=== PATIENT | male | born 1945 | race Caucasian/White ===

== ENCOUNTER 2018-01-12 22:53 | Inpatient (IN) | payer OTHER ==
[~2018-01-12] VITALS: Ht 180.3 cm; Wt 86.2 kg
--- NOTE | ~2018-01-12 | HC ---
[facility] [place] [address] CONSULTATION Name: MEGHAN MILLS Room #: 208-P [facility] IN M.R.#: [id number] Admission: 01/13/18 Attend Phys: Chandu Ornelas MD Discharge: 01/13/18 Date of : 49 Report #: [id number] THIS REPORT FOR: //name// CC: Lizandro Ornelas DATE OF SERVICE: 01/13/2018 REASON FOR CONSULTATION: Chest pain. HISTORY OF PRESENT ILLNESS: The patient is a 72-year-old gentleman with a history of 4-vessel bypass in 2011. Over the past several months, he has had exertional chest pain and fatigue. This has become much more progressive limiting his activities. He had a similar episode of pain yesterday and presented to the emergency department where he was given three sublingual nitroglycerin tablets, aspirin and morphine and his pain resolved. He reports this pain is reminiscent to what he experienced prior to his bypass surgery. He denies heart failure symptoms including orthopnea, paroxysmal nocturnal dyspnea, or lower extremity edema. He does have a history of remote paroxysmal atrial fibrillation, although nothing recently. No history of near syncope or syncope. ALLERGIES: No known drug allergies. MEDICATIONS: Include atorvastatin 40 mg daily, tramadol, levothyroxine 0.075 mg daily, metoprolol succinate 50 mg daily, trazodone, and Wellbutrin 150 mg daily. PAST MEDICAL HISTORY: Medical records have been reviewed and include a history of herniorrhaphy, coronary artery bypass grafting, COPD, dyslipidemia, hypertension. SOCIAL HISTORY: He is an ongoing smoker. FAMILY HISTORY: Unremarkable for premature coronary disease. REVIEW OF SYSTEMS: All systems negative except as that noted above. PHYSICAL EXAMINATION: GENERAL: He is a pleasant gentleman, in no distress. VITAL SIGNS: Blood pressure is 117/75, heart rate is 62 and regular, he is afebrile. HEENT: There are neither xanthelasma, subcutaneous xanthomata, oral mucosal or digital cyanosis or kyphoscoliosis present. CHEST: Clear to auscultation and percussion. CARDIAC: Regular rate and rhythm with normal S1, S2. ABDOMEN: Soft and nontender. EXTREMITIES: Without cyanosis, clubbing, or edema. Radial pulses are 2+. [facility] [address] [place] [address] [facility] Room #: 208-P [facility] IN M.R.#: [id number] Admission: 01/13/18 Attend Phys: Chandu Ornelas MD Discharge: 01/13/18 Date of : 49 Report #: [id number] NEUROLOGIC: He is alert with a nonfocal exam. LABORATORY DATA: Sodium is 142, potassium 3.8, creatinine 1.2. Troponin 0.89. Cholesterol 109, LDL 60, HDL 32. White count 5.8, hemoglobin 12, hematocrit 36, platelet count 249. Chest x-ray is normal. EKG sinus rhythm with right bundle branch block. IMPRESSION: 1. Non-Q-wave myocardial infarction. 2. Coronary artery disease with remote 4-vessel bypass. 3. Hypertension. 4. Dyslipidemia. 5. Chronic obstructive pulmonary disease with blebs. RECOMMENDATIONS: 1. Coronary angiography. This procedure was discussed in detail including its associated risks as well as the risks associated with a possible percutaneous intervention. 2. Beta lucina, nitrates, antiplatelet and anticoagulants. 3. Smoking cessation encouraged. <ELECTRONICALLY SIGNED> By: Ray Gonzalez MD, [facility] 01/18/18 0734 0817 0943 Ray Gonzalez MD, [facility] /nt
--- NOTE | ~2018-01-12 | EKG ---
[address] [place] [address] ELECTROCARDIOGRAM REPORT Name: MEGHAN MILLS Room #: 208-P ADM IN M.R.#: [id number] Admission: 01/13/18 Attend Phys: Chandu Ornelas MD Discharge: Date of : 49 Report #: [id number] THIS REPORT FOR: //name// [facility] ED Test Date: 2018-01-12 Test Time: 23:01:12 Pat Name: MEGHAN MILLS Department: Room: Gender: M Distributing Clerk: Lisa BAER : 1945 Requested By: Nahomy Cruz Order Number: [id number] MD: Ronnie Morejon Measurements Intervals [place] Rate: 69 P: 51 KS: 202 QRS: 89 QRSD: 105 T: 46 QT: 398 QTc: 427 Interpretive Statements Sinus rhythm Borderline right axis deviation RSR' in V1 or V2, probably normal variant Borderline T abnormalities, anterior leads Compared to ECG 01/06/2018 00:14:36 RSR' in V1 or V2 now present T-wave abnormality now present First degree AV block no longer present Right bundle-branch block no longer present Electronically Signed On 01-13-2018 8:21:49 CDT by Ronnie Morejon [email or web address] <ELECTRONICALLY SIGNED> By: Ronnie Morejon MD 01/13/18820 00 00 Ronnie Morejon MD /EPI
--- NOTE | ~2018-01-12 | 2DMMODE ---
[facility] [address] [place] [address] 2 D/M-MODE ECHOCARDIOGRAM Name: MEGHAN MILLS Room #: 208-P ADM IN .R.#: [id number] Admission: 01/13/18 Attend Phys: Chandu Ornelas MD Discharge: Date of : 49 Date of Service: 01/13/18 1430 Report #: [id number] THIS REPORT FOR: //name// APPROVED REPORT Study performed: 01/13/2018 12:33:30 EXAM: Comprehensive 2D, Doppler, and color-flow Echocardiogram Patient Location: Bedside Room #: 208 Status: routine BSA: 2.06 HR: 62 bpm BP: 117/75 mmHg Other Information Study Quality: Adequate Indications CAD Chest Pain Hypertension/HDD CABG 2D Dimensions RVDd: 40.02 mm LVEF(%): 41.10 (>50%) IVSd: 8.03 (7-11mm) LVOT Diam: 26.62 (18-24mm) LVDd: 55.66 mm PWd: 8.68 (7-11mm) Ascending Ao: 36.13 (22-36mm) LVDs: 44.33 (25-40mm) Aortic Root: 37.41 mm IVC: 21.00 mm Ferguson's LVEF: 41.10 % Volumes Left Atrial Volume (Systole) Single Plane 4CH: 60.54 mL Single Plane 2CH: 75.51 mL LA ESV Index: 36.00 mL/m2 Aortic Valve AoV Peak Nitesh.: 0.84 m/s AO Peak Gr.: 2.82 mmHg LVOT Max P.33 mmHg LVOT Max V: 0.76 m/s JANELLE Vmax: 5.06 cm2 Mitral Valve [facility] [address] [place] [place] [address] 2 D/M-MODE ECHOCARDIOGRAM Name: [facility] Room #: 208-P [facility] IN .R.#: [id number] Admission: 01/13/18 Attend Phys: Chandu Ornelas MD Discharge: Date of : 49 Date of Service: 01/13/18 1430 Report #: [id number] E/A Ratio: 1.2 MV Decel. Time: 205.76 ms MV E Max Nitesh.: 0.69 m/s MV A Nitesh.: 0.58 m/s MV PHT: 59.67 ms IVRT: 101.50 ms Pulmonary Valve PV Peak Nitesh.: 0.70 m/s PV Peak Gr.: 1.94 mmHg Pulmonary Vein P Vein S: 0.30 m/s P Vein A: 0.14 m/s P Vein D: 0.30 m/s P Vein A Dur.: 115.3 msec P Vein S/D Ratio: 1.00 Tricuspid Valve TR Peak Nitesh.: 1.95 m/s TR Peak Gr.: 15.21 mmHg PA Pressure: 25.00 mmHg Left Ventricle The left ventricle is normal size. There is normal left ventricular wall thickness. Left ventricular systolic function is at the lower limits of normal. Mild hypokinesis of base to mid septum. LVEF 45%. The diastolic function is abnormal. Right Ventricle The right ventricle is normal size. The right ventricular systolic function is normal. Atria Left atrium is dilated. Right atrium is dilated. Aortic Valve Aortic valve is calcified. No aortic regurgitation is present. There is no aortic valvular stenosis. Mitral Valve The mitral valve is normal in structure. Mild mitral regurgitation. No evidence of mitral valve stenosis. Tricuspid Valve The tricuspid valve is normal in structure. There is mild tricuspid regurgitation. Estimated PAP 25 mmHg. There is no pulmonary hypertension. [address] [address] 2 D/M-MODE ECHOCARDIOGRAM Name: GENEMEGHAN Room #: 208-P [facility] IN ..#: [id number] Admission: 01/13/18 Attend Phys: Chandu Ornelas MD Discharge: Date of : 49 Date of Service: 01/13/18 1430 Report #: [id number] Pulmonic Valve The pulmonary valve is normal in structure. There is no pulmonic valvular regurgitation. Great Vessels The aortic root is normal in size. IVC is dilated and collapses >50% with inspiration. Pericardium There is no pericardial effusion. <Conclusion> Left ventricular systolic function is at the lower limits of normal. Hypokinesis of base to mid septum. LVEF 45-50%. Both atria are mildly dilated. Aortic valve is mildly calcified. No aortic regurgitation or stenosis The mitral valve is normal in structure. Mild mitral regurgitation. There is mild tricuspid regurgitation. Estimated pulmonary artery pressure of 25 mmHg. There is no pericardial effusion. <ELECTRONICALLY SIGNED> By: Ray Gonzalez MD, FACC 01/13/18 1430 1430 1430 Ray Gonzalez MD, FACC /INF
--- NOTE | ~2018-01-12 | CATHLAB ---
[facility] [address] [place] [place] [address] INVASIVE PROCEDURE REPORT Name: MEGHAN MILLS Room #: 208-P ADM IN [facility].#: [id number] Admission: 01/13/18 Attend Phys: Chandu Ornelas MD Discharge: Date of : 49 Date of Service: 01/13/18 1217 Report #: [id number] THIS REPORT FOR: //name// APPROVED REPORT Study performed: 01/13/2018 08:56:49 Patient Details Patient Status: In-Patient Room #: The patient is a 72 year-old male Event Personnel Ray Gonzalez Compass Operator, Tangela George RN RN, Chloe James RTR, Roe Brandt David Monitor, Hesham Damian Registered Nurse Bone Marrow Transplant Procedures Performed Left Heart Cath Coronaries, Bypass Grafts [id number] [facility] Ind[facility] Abnormal ECG, Non-STEMI Procedure Narrative The patient was brought urgently to the Cardiac Catheterization Laboratory and was prepped and draped in a sterile manner. The Right Groin^ then Lt groin was infiltrated with 1% Lidocaine subcutaneous anesthesia. A PINNACLE 6FR Sheath #[id number] sheath was inserted into the LFA^. Coronary angiography was performed using coronary diagnostic catheters. The right coronary system was accessed and visualized with a JR4 catheter. The left coronary system was accessed and visualized with a JL4 catheter. Closure device was deployed with a 6 Fr MYNXGRIP 6/7F #[id number]. There was no hematoma. Strong pulses were present bilaterally. The right iliac artery appeared to be occluded. Attention was turned to the left groin. All catheter exchanges were made over 260 cm exchange length wire. The aortic bifurcation was quite high. Access was technically difficult and required multiple catheter exchanges and wire manipulations. Intraoperative Conscious Sedation Sedation start time: 9.27 Case end Time: 10.32 Fentanyl 50 mcg Versed 2 mg Fluoro Time: 21.53 minutes [facility] [place] [address] INVASIVE PROCEDURE REPORT Name: MEGHAN MILLS Room #: 208-P ADM IN .R.#: [id number] Admission: 01/13/18 Attend Phys: Chandu Ornelas MD Discharge: Date of : 49 Date of Service: 01/13/18 1217 Report #: [id number] Dose: 1387 mGy Contrast Type and Amount: Omnipaque 240 ml Coronary Angiography The patient's coronary anatomy is right dominant. Diagnostic Cath Left Main Normal left main LAD The LAD was occluded at its origin Widely patent left internal mammary to the distal LAD. The distal anastomotic site was widely patent. The tanacross LAD was small in caliber but free of significant occlusive disease. The MONTERO filled in a retrograde fashion a high diagonal branch Diagonal 1 The diagonal branch bifurcated proximally. This is a small vessel (1.5 mm) Circumflex The circumflex was large but nondominant and comprised of 3 marginal branches OM1 Mild scattered plaquing OM2 Mild scattered plaquing OM3 30-40% ostial stenosis, mild distal plaquing Right Coronary The right coronary was dominant and occluded proximally. There were moderate right to right collaterals to the distal right coronary Widely patent saphenous vein graft to the distal right coronary, posterior descending. Both proximal and distal anastomotic sites were widely patent. There appeared to be jump sequence from the posterior descending to the posterior lateral branch The distal tanacross vasculature exhibited minimal plaquing. R PDA Moderate in size with minimal plaquing RPLV Moderate in size with minimal plaquing Hemodynamics The aortic pressure is 133/74 mmHg with a mean of 96 mmHg. Conclusion 1. Severe multivessel coronary disease with occlusion of the proximal LAD and proximal right coronary 2. Mild circumflex plaquing 3. Patent left internal mammary to the LAD 4. Patent sequential vein graft to the posterior descending with a jump sequence to the posterolateral branch 5. Occluded vein graft, probably to the diagonal branch Recommendations Smoking Cessation [address] [address] INVASIVE PROCEDURE REPORT Name: HARJINDERPOLINAMEGHAN Room #: 208-P [facility] IN M.R.#: [id number] Admission: 01/13/18 Attend Phys: Chandu Ornelas MD Discharge: Date of : 49 Date of Service: 01/13/18 1217 Report #: [id number] Cardiac Rehabilitation Referral Aggressive Medical Therapy <ELECTRONICALLY SIGNED> By: Ray Gonzalez MD, FACC 01/13/181216 16 16 Ray Gonzalez MD, FAC /INF
[~2018-01-12 22:53] MED LIST: AMBIEN 10 MG TA10 MG PO; ASPIRIN325 PO; ATORVASTATIN CA40 MG PO; CELEXA20 MG PO; FLEXERIL PO; GEMFIBROZIL 60600 MG PO; HYDROCODONE-AP1 EAC6 PO; LEVOTHYROXIN0.075 MG PO; LEXAPRO20 MG PO; LIDOCAINE35.44 GM TOP; LISINOPRIL5 MG PO; NITROGLYCERIN0.4 MG SUBLING; PLAVIX 75 MG TA75 M1 PO; PROAIR HFA8.5 GM INH; PROTONIX40 M1 PO; TEGRETOL200 MG PO; TOPROL XL50 MG PO; TRAZODONE HCL50 MG PO; ULTRAM 50MG TAB50 MG PO; WELLBUTRIN XL150 MG PO; XANAX 0.5 MG0.5 MG PO
[2018-01-12 22:54] VITALS: BP 117/72
[2018-01-12 23:19] LABS: ABSOLUTE NEUTROPHILS 2.9 thou/uL (1.4-8.2); BASOPHILS 1.3 % (0.0-2.0); EOSINOPHILS 3.1 % (0.0-3.0); HEMATOCRIT 36.7 % (42.0-52.0); HEMOGLOBIN 12.9 gm/dL (14.0-18.0); LYMPHOCYTES 36.1 % (24.0-44.0); MCH 34.8 pg (26.0-34.0); MCHC 35.3 g/dL (28.0-37.0); MCV 98.7 fL (80.0-100.0); MONOCYTES 8.9 % (1.0-8.0); PLATELET COUNT 249 thou/uL (150-400); POLYS 50.6 % (36.0-66.0); RBC 3.72 mil/uL (4.50-6.00); WBC 5.8 thou/uL (4.0-11.0)
[2018-01-12 23:43] LABS: CALCIUM 8.4 mg/dL (8.5-10.1); CREATININE 1.2 mg/dL (0.7-1.3); POTASSIUM 3.8 mmol/L (3.5-5.1)
[2018-01-12 23:52] LABS: APTT 26.4 Seconds (24.5-32.8); INR 1.1; PROTIME 11.2 Seconds (9.3-11.4)
[2018-01-13] VITALS (16 sets, daily range): BP systolic 100–118; BP diastolic 60–75
[2018-01-13 00:05] LABS: TROPONIN-I 0.89 ng/mL (<0.06)
[2018-01-13 05:25] LABS: CHOLESTEROL 109 mg/dL (<200); HDL CHOLESTEROL 32 mg/dL (>40); LDL CHOLESTEROL 60 mg/dL (<100); TC:HDL 3.4 Ratio (Not establshd); TRIGLYCERIDE 86 mg/dL (<150); VLDL 17 mg/dL (<40)
[2018-01-13 05:31] LABS: SERUM ASSESSMENT Clear
[2018-01-13] MEDS ORDERED: ASPIR 8181 MG PO (16:03)
[2018-01-13] MEDS ORDERED: IMDUR 60 MG TAB60 M1 PO (16:03)
== END 2018-01-13 18:44 | disposition home or self-care (01) | DRG 281 ==
LOC: ER 22:53 → 2N 01-13 03:03 → EROBS 01-13 03:03 → 2N 01-13 03:39
PROVIDERS: Emergency Medicine; Nurse Practitioner Family
PROC: B2111ZZ Fluoroscopy of Multiple Coronary Arteries using Low Osmolar Contrast (ICD-10-PCS; principal; 2018-01-13)
PROC: 4A023N7 Measurement of Cardiac Sampling and Pressure, Left Heart, Percutaneous Approach (ICD-10-PCS; principal; 2018-01-13)
DX: I21.4 Non-ST elevation (NSTEMI) myocardial infarction (principal); E44.1 Mild protein-calorie malnutrition; D64.9 Anemia, unspecified; J44.9 Chronic obstructive pulmonary disease, unspecified; E78.5 Hyperlipidemia, unspecified; I10 Essential (primary) hypertension; F17.210 Nicotine dependence, cigarettes, uncomplicated; F32.9 Major depressive disorder, single episode, unspecified; F41.9 Anxiety disorder, unspecified; E03.9 Hypothyroidism, unspecified; I48.0 Paroxysmal atrial fibrillation; Z79.899 Other long term (current) drug therapy; Z95.1 Presence of aortocoronary bypass graft; Z82.49 Family history of ischemic heart disease and other diseases of the circulatory system; Z71.6 Tobacco abuse counseling
CPT/HCPCS: 10081